=== PATIENT | male | born 1955 | race Caucasian/White ===

== ENCOUNTER 2021-07-01 06:00 | Day surgery (SDC) | payer OTHER, MEDICARE ==
[2021-07-01 06:35] LABS: Absolute Lymphocytes (CBC) 2.4 K/uL (0.7-4.9); Basophils % 0.5 % (0-1.3); Hematocrit 45.1 % (39.6-49.0); Lymphocytes % 28.1 % (15.3-44.8); MPV 7.4 fL (7.6-11.3); RBC Red Blood Cell Count 4.86 M/uL (4.33-5.43)
[2021-07-01 06:48] LABS: Potassium 3.7 mmol/L (3.5-5.1)
[2021-07-01] MEDS ORDERED: Ringers Lactate 1,000 ML IV ONE (07:45)
--- NOTE | 2021-07-01 07:55 | RAD REPORT ---
EXAM DESCRIPTION: Muriel Osorio (2 Views)07/01/2021 6:28 am CLINICAL HISTORY: Preop COMPARISON: 2018 FINDINGS: Lungs are mildly to moderately hyperaerated. The lungs appear clear of acute infiltrate. The heart is normal size. Pacemaker leads in place IMPRESSION: No acute abnormalities displayed
[2021-07-01] MEDS ORDERED: propofoL 200 MG/20 ML VIAL IV ONE (08:32)
[2021-07-01] MEDS ORDERED: FENTANYL CITR 100 MCG/2 ML ONE (08:32)
[2021-07-01] MEDS ORDERED: LIDOCAINE 1% MPF 5 ML VIAL ONE (08:33)
[2021-07-01] MEDS ORDERED: MIDAZOLAM HCL 2 MG/2 ML INJ ONE (08:33)
[2021-07-01] MEDS: CIPROFLOXACIN 400mg IV 400 MG/200 ML BAG IV ONE ×2 (08:42→09:00)
[2021-07-01] MEDS ORDERED: KETOROLAC 30 MG/ML INJ ONE (08:56)
[2021-07-01] MEDS ORDERED: ONDANSETRON 4 MG/2 ML VIAL ONE (09:02)
--- NOTE | 2021-07-01 09:54 | P.BOP ---
Preoperative diagnosis: tender large right inguinal hernia Postoperative diagnosis: same Primary procedure: Open repair of tender large right inguinal hernia with mesh Project Management It Specialist: Felicity Gibson (Niam) Estimated blood loss: <10cc Specimen: lipoma of cord Findings: direct RIH Anesthesia: General Complications: None Implants: large mesh plug system Transferred to: Recovery Room Condition: Good
[2021-07-01] MEDS: MORPHINE 4 MG/ML SYR ONE ×2 (10:07→10:15)
[2021-07-01] MEDS: HYDROMORPHONE HCL 1 MG/ML INJ ONE ×2 (10:23→10:32)
[2021-07-01] MEDS ORDERED: HYDROCODONE/APAP 5/325 MG TAB ONE (11:26)
[2021-07-01 12:03] VITALS: TEMP 96.9
[2021-07-01 12:04] VITALS: BP 122/67; O2SAT 96
--- NOTE | 2021-07-01 13:11 | EKG ---
Test Date: 2021-07-01 Test Time: 05:43:59 Child Center Assistant: LOPEZ MEASUREMENT RESULTS: Intervals: Rate: 81 MS: 126 QRSD: 88 QT: 372 QTc: 432 Benicia: P: 43 MS: 126 QRS: -56 T: 60 INTERPRETIVE STATEMENTS: Normal sinus rhythm Left anterior fascicular block Abnormal ECG Compared to ECG 06/30/2011 11:49:42 Left anterior fascicular block now present Atrial-paced complex(es) or rhythm no longer present Electronically Signed On 07-01-21 13:10:18 CDT by Dat Chávez
--- NOTE | 2021-07-01 14:30 | OP ---
Date of Procedure: 07/01/2021 Surgeon: Miles Escobar MD Allergist/Immunologist: SOFIE Montanez. Preoperative Diagnosis: Tender large right inguinal hernia. Postoperative Diagnosis: Tender large right inguinal hernia. Procedure: Open repair of tender large right inguinal hernia with mesh. Estimated Blood Loss: Less than 10 cc. Findings: Direct right inguinal hernia. Anesthesia: General plus local. Implant: Large mesh plug and sheath system. Indication: This is the case of a 66-year-old patient, comes to us with a tender large right inguina l hernia. Benefits, alternatives, and risks of repair with mesh were fully explained, which include, but not limited to infection, bleeding, damage to adjacent structures, anesthesia complication, recu rrence, chronic pain, chronic numbness, ND and even . He also understands this may not relieve any symptoms. He might need more than one surgical intervention. He also understands we may be usin g mesh in that repair. Pros and cons of mesh use were discussed with the patient. He was allowed to ask questions and answered to his satisfaction, and he signed a consent and he also consented for th e use of mesh. Procedure In Detail: The patient was brought to the operating room, placed in supine position. Anes thesia was done without complication. The right inguinal region and abdomen were prepped and draped in usual sterile fashion. Time-out was called. An incision was made in the right inguinal region go ing down to Cesar fascia until we found external oblique aponeurosis that was opened in direction of its fibers to connect to the superficial inguinal ring. Ilioinguinal nerve and iliohypogastric nerv e were identified. We protected behind external oblique aponeurosis. After that, a Lorenza was plac ed around the spermatic cord. We noticed a direct hernia present. We have a lipoma of the cord that was identified and ligated making sure the spermatic cord structures were protected at all time. Th e defect on the direct area and the hernia sac was imbricated. We proceeded to reconstruct the floor of the canal by using Prolene starting in the pubic tubercle, shelving edge of inguinal ligament and transversalis fascia. At the deep inguinal ring, we placed a large mesh plug and secured in place w ith the help of VersaTack christopher. After that, we placed a mesh and sheet securing that to the pubic tubercle, shelving edge of the inguinal ligament, transversalis fascia, and the tails looped around the spermatic cord without strangulation. This was secured in place once again with VersaTack. No b leeding. At that moment, I proceeded then to bring the ilioinguinal nerve and iliohypogastric nerve back into the inguinal canal, reconstructed the superficial inguinal ring and closed the external obl ique aponeurosis with Prolene. Area was irrigated. Then, after that I proceeded to close the Cesar fascia with 3-0 chromic and skin with christopher. Sponge count and instrument counts correct. The pat ient tolerated the procedure well. The patient was sent to recovery in stable condition. MILAGRO/EH Voice ID: [id number] Report ID: [id number]
--- NOTE | 2021-07-01 14:33 | DS ---
Date of Discharge: 07/01/2021 Diagnosis: Tender large right inguinal hernia. Procedure: Open repair of tender large right inguinal hernia with mesh. Disposition: Home. Activity: As tolerated. No heavy lifting. Plan: Follow up in my office in 1 week. Call for appointment at [phone]. Keep area dry for 48 kevan rs, then may shower. Cold compress to the right inguinal region for 24 hours. Medications: See orders. MILAGRO/EH Voice ID: [id number] Report ID: [id number]
== END 2021-07-01 12:38 | disposition home or self-care (01) ==
LOC: OR 06:00
PROVIDERS: ATTEND Surgery
PROC: 0YU50JZ Supplement Right Inguinal Region with Synthetic Substitute, Open Approach (ICD-10-PCS; principal; 2021-07-01 08:15)
DX: K40.90 Unilateral inguinal hernia, without obstruction or gangrene, not specified as recurrent (principal); Z20.822 Contact with and (suspected) exposure to COVID-19
CPT/HCPCS: 93005; 85025; 80048; 36415; 88302; 71046; 49505; U0003; J2704; J2250; J3010; J1170; J7120; J2405; J0744